=== PATIENT | male | born 1975 | race Caucasian/White ===

== ENCOUNTER 2023-11-16 11:42 | Observation (INO) | payer BC ==
--- NOTE | 2023-11-16 12:24 | ED ---
Chest Pain HPI - General Source: patient, RN notes reviewed Mode of arrival: ambulatory Limitations: no limitations <Bart Sparks - Last Filed: 11/16/23 12:23> <Tacho Bravo - Last Filed: 11/16/23 13:27> - General Chief Complaint: Chest Pain Stated Complaint: Chest Pains Time Seen by Provider: 11/16/23 11:59 - History of Present Illness Initial Comments: Quick [id number] male presents emergency department chief complaint chest pain. He states chest pain has been going on for quite some time has worsened.. Does have history of diabetes denies any prior cardiac disease denies hyperlipidemia hypertension. Patient states he was seen in urgent care and referred here for further workup. Patient denies any prior lung disease. (Bart Sparks) 48-year-old male with multiple risk factors presenting with progressive complaint of chest pain which is now exertional and relieved by rest. Central chest pain which she states over the past several days has been with walking. Patient has history of diabetes, hypertension, hyperlipidemia and is a current smoker. (Tacho Bravo) - Related Data Allergies Allergy/AdvReac Type Severity Reaction Status Date / Time No Known Allergies Allergy Verified 11/16/23 11:51 Review of Systems ROS Other: All systems not noted in ROS Statement are negative. <Bart Sparks - Last Filed: 11/16/23 12:23> ROS Other: All systems not noted in ROS Statement are negative. <Tacho Bravo - Last Filed: 11/16/23 13:27> ROS Statement: Those systems with pertinent positive or pertinent negative responses have been documented in the HPI. Past Medical History Past Medical History: Diabetes Mellitus History of Any Multi-Drug Resistant Organisms: None Reported Past Surgical History: No Surgical Hx Reported Past Psychological History: No Psychological Hx Reported Smoking Status: Vaper Past Alcohol Use History: Rare Past Drug Use History: None Reported <Bart Sparks - Last Filed: 11/16/23 12:23> General Exam Limitations: no limitations <Bart Sparks - Last Filed: 11/16/23 12:23> General appearance: alert, in no apparent distress Head exam: Present: atraumatic, normocephalic Eye exam: Present: normal appearance, PERRL ENT exam: Present: normal exam Neck exam: Present: normal inspection. Absent: tenderness, meningismus Respiratory exam: Present: normal lung sounds bilaterally. Absent: respiratory distress, wheezes Cardiovascular Exam: Present: regular rate, normal rhythm GI/Abdominal exam: Present: soft. Absent: distended, tenderness, guarding Extremities exam: Present: normal inspection, normal capillary refill Neurological exam: Present: alert, oriented X3 Psychiatric exam: Present: normal affect, normal mood Skin exam: Present: warm, dry, intact. Absent: cyanosis, diaphoretic <Tacho Bravo - Last Filed: 11/16/23 13:27> - General Exam Comments Initial Comments: Visual Physical Exam Vital signs reviewed General: Well-appearing, nontoxic, no acute distress. Head: Normocephalic, atraumatic Eyes: PERRLA, EOMI ENT: Airway patent Chest: Nonlabored breathing Skin: No visual rash, normal skin tone Neuro: Alert and oriented 3 Musculoskeletal: No gross abnormalities (Bart Sparks) Course Vital Signs 11/16/23 11:48 Temperature 97.9 F Pulse Rate 96 Respiratory 16 Rate Blood Pressure 129/89 O2 Sat by Pulse 100 Oximetry Chest Pain MDM <Bart Sparks - Last Filed: 11/16/23 12:23> <Tacho Bravo - Last Filed: 11/16/23 13:27> - MDM I completed the quick note portion of this chart signed Bart Sparks PA-C (Bart Sparks) Was pt. sent in by a medical professional or institution ([facility], [facility], urgent care, hospital, or long term...) When possible be specific @ -Sent in by urgent care Did you speak to anyone other than the patient for history (EMS, parent, family, police, friend...)? What history was obtained from this source @ -No Did you review nursing and triage notes (agree or disagree)? Why? @ -I reviewed and agree with nursing and triage notes Were old charts reviewed (outside hosp., previous admission, EMS record, old EKG, old radiological studies, urgent care reports/EKG's, long term records)? Report findings @ -No old charts were reviewed Differential Diagnosis (chest pain, altered mental status, abdominal pain women, abdominal pain men, vaginal bleeding, weakness, fever, dyspnea, syncope, headache, dizziness, GI bleed, back pain, seizure, CVA, palpatations, mental health, musculoskeletal)? @Differential Chest Pain: Stable Angina, Unstable Angina, STEMI, NSTEMI Aortic Dissection, Pneumothorax, Musculoskeletal, Esophageal Spasm GERD, Cholecystitis, Pancreatitis, Zoster, this is not meant to be an all-inclusive list. EKG interpreted by me (3pts min.). @ -[EKG: Sinus rhythm rate of 83, MA interval 161, QRS duration 88, QTc 393 X-rays interpreted by me (1pt min.). @ -Chest x-ray negative for acute cardiopulmonary disease CT interpreted by me (1pt min.). @ -[None done U/S interpreted by me (1pt. min.). @ -None done What testing was considered but not performed or refused? (CT, X-rays, U/S, labs)? Why? @ -None What meds were considered but not given or refused? Why? @ -None Did you discuss the management of the patient with other professionals (professionals i.e. , PA, [employer]F [employer]ATER, lab, RT, psych nurse, group social worker, post partum nurse, teacher, combat information center officer, case management specialist)? Give summary @ -EMH Was smoking cessation discussed for >3mins.? @ -No Was critical care preformed (if so, how long)? @ -No Were there social determinants of health that impacted care today? How? (Homelessness, low income, unemployed, alcoholism, drug addiction, transportation, low edu. Level, literacy, decrease access to med. care, [facility] [facility], rehab)? @ -No Was there de-escalation of care discussed even if they declined (Discuss DNR or withdrawal of care, Hospice)? DNR status @ -No What co-morbidities impacted this encounter? (DM, HTN, Smoking, COPD, CAD, Cancer, CVA, ARF, Chemo, Hep., AIDS, mental health diagnosis, sleep apnea, morbid obesity)? @ -[Hypertension diabetes, current tobacco use Was patient admitted / discharged? Hospital course, mention meds given and route, prescriptions, significant lab abnormalities, going to OR and other pertinent info. @ -48-year-old male sent in by urgent care for evaluation of intermittent worsening chest discomfort with exertion. Patient chest pain-free at the time my evaluation. He has significant risk factors and history is concerning for anginal chest pain. EKG sinus without ST segment elevation. Initial laboratory testing is unremarkable including negative troponin. Patient will be placed in observation for serial cardiac enzymes, telemetry, cardiology consultation. Undiagnosed new problem with uncertain prognosis? @ -No Drug Therapy requiring intensive monitoring for toxicity (Heparin, Nitro, Insulin, Cardizem)? @ -No Were any procedures done? @ -No Diagnosis/symptom? @Chest pain Acute, or Chronic, or Acute on Chronic? @ -[Acute Uncomplicated (without systemic symptoms) or Complicated (systemic symptoms)? @ -Default Side effects of treatment? @ -No Exacerbation, Progression, or Severe Exacerbation? @ -No Poses a threat to life or bodily function? How? (Chest pain, [place], [place], pneumonia, PE, COPD, DKA, ARF, appy, cholecystitis, CVA, Diverticulitis, Homicidal, Suici jf, threat to staff... and all critical care pts) @ -[Yes, ACS (Tacho Bravo) Disposition <Bart Sparks - Last Filed: 11/16/23 12:23> Is patient prescribed a controlled substance at d/c from ED?: No Time of Disposition: 13:27 <Tacho Bravo - Last Filed: 11/16/23 13:27> Clinical Impression: Chest pain Disposition: ADMITTED IP TO THIS HOSP Condition: Stable Referrals: Mack Hernández DO [Primary Care Provider] - 1-2 days
[2023-11-16 12:36] LABS: Basophils # (A) 0.1 k/uL (0-0.2); Basophils % (A) 1 %; Eosinophils # (A) 0.2 k/uL (0-0.7); Eosinophils % (A) 3 %; HCT 46.9 % (39.0-53.0); Lymphocytes # (A) 2.2 k/uL (1.0-4.8); Lymphocytes % (A) 23 %; MCH 30.2 pg (25.0-35.0); MCV 94.4 fL (80.0-100.0); Mean Platelet Volume 9.7; Monocytes # (A) 0.5 k/uL (0-1.0); Monocytes % (A) 6 %; Neutrophils # (A) 6.1 k/uL (1.3-7.7); Neutrophils % (A) 66 %; Platelet Count 214 k/uL (150-450); RBC 4.97 m/uL (4.30-5.90); RDW 12.4 % (11.5-15.5); WBC 9.3 k/uL (3.8-10.6)
[2023-11-16 12:38] LABS: INR 0.9 (<1.2); Partial Thromboplastin Time 24.2 sec (22.0-30.0); Prothrombin Time 10.3 sec (10.0-12.5)
--- NOTE | 2023-11-16 12:39 | XR ---
EXAMINATION TYPE: XR chest 2V DATE OF EXAM: 11/16/2023 COMPARISON: NONE HISTORY: Chest pain TECHNIQUE: Frontal and lateral views of the chest are obtained. FINDINGS: There is no focal air space opacity. No evidence for pneumothorax. No pleural effusion. The cardiac silhouette size is within normal limits. The osseous structures are grossly intact. IMPRESSION: 1. No acute cardiopulmonary process.
[2023-11-16 12:50] LABS: ALT 21 U/L (4-49); AST 26 U/L (17-59); African American GFR (CKD) >90 (>60 ml/min/1.73 sqM); Albumin 4.3 g/dL (3.5-5.0); Alkaline Phosphatase 77 U/L (38-126); Anion Gap 8 mmol/L; Blood Urea Nitrogen 13 mg/dL (9-20); Calcium 10.1 mg/dL (8.4-10.2); Carbon Dioxide 29 mmol/L (22-30); Chloride 105 mmol/L (98-107); Glucose 177 mg/dL (74-99); Magnesium 1.4 mg/dL (1.6-2.3); Non-African American GFR(CKD) >90 (>60 ml/min/1.73 sqM); Potassium 4.1 mmol/L (3.5-5.1); Sodium 142 mmol/L (137-145); Total Bilirubin 0.6 mg/dL (0.2-1.3); Total Protein 7.5 g/dL (6.3-8.2)
[2023-11-16] MEDS ORDERED: NALOXONE 0.4 MG/ML 1 ML VIAL IV PRN (13:21)
[2023-11-16] MEDS: ASPIRIN 325 MG TAB PO STA (14:35)
[2023-11-16] MEDS: MAGNESIUM SULFATE-D5W PMX 1 GM in DEXTROSE/WATER 1 100ML.BAG IVPB ONE (14:38)
[2023-11-16] MEDS ORDERED: Magnesium Replacement Protocol 1 EACH MISC MISCELLANE PRN (15:27)
[2023-11-16] MEDS ORDERED: Potassium Replacement Protocol 1 EACH MISC MISCELLANE PRN (15:27)
[2023-11-16] MEDS ORDERED: DEXTROSE 50% SYRINGE 50 ML IVP PRN ×2 (15:27)
[2023-11-16 17:11] LABS: Glucose,Whole Blood 139 mg/dL (70-110)
[2023-11-16] MEDS: INSULIN ASPART (NovoLOG) 100 UNIT/ML VIAL SQ SCH (17:12)
[2023-11-16 21:16] LABS: Glucose,Whole Blood 160 mg/dL (70-110)
[2023-11-16] MEDS: ATORVASTATIN 10 MG TAB PO SCH (21:31)
[2023-11-16 23:17] LABS: Glucose,Whole Blood 191 mg/dL (70-110)
[2023-11-16] MEDS: INSULIN DETEMIR (LEVEMIR) 100 UNIT/ML SYR SQ SCH (23:22)
--- NOTE | 2023-11-17 01:57 | HP ---
HISTORY AND PHYSICAL CHIEF COMPLAINT: Chest pain. HISTORY OF PRESENT ILLNESS: This 48-year-old gentleman was admitted with chest pain. The pain was worsened recently. The pain was aggravated on exertion. The patient was seen in Urgent [facility] Center, was referred for complete workup at this time. There are no history of any fever, rigors, or chills. Initial troponins are negative. PAST MEDICAL HISTORY: Reviewed. Include diabetes mellitus type 2. HOME MEDICATIONS: Reviewed. Include vitamin D3. Dose and rest of medications reviewed. ALLERGIES: None. FAMILY HISTORY: No history of heart disease or strokes in the family. SOCIAL HISTORY: Vaping REVIEW OF SYSTEMS: Fourteen-point review of systems negative except as mentioned earlier. PHYSICAL EXAM: VITAL SIGNS: Pulse is 66, blood pressure 121/80, respirations 16. HEENT: Conjunctivae normal. NECK: No JVD. CARDIOVASCULAR: S1, S2 muffled. RESPIRATIONS: Clear to auscultation. ABDOMEN: Soft, nontender. No mass. LEGS: No edema. NERVOUS SYSTEM: Nonfocal. SKIN: No ulcer, rash, bleeding. JOINTS: No active deforming arthropathy. LABORATORY DATA: Reviewed. ASSESSMENT: 1. Chest pain, possible unstable angina. 2. Diabetes mellitus, type 2. 3. History of atrial fibrillation. 4. Hypomagnesemia. RECOMMENDATIONS AND DISCUSSION: This is a 48-year-old gentleman who presented with multiple complex medical issues, we will monitor the patient closely. I would recommend to rule out myocardial infarction. Cardiology consultation. 2D echo with Doppler, possible stress test. Guarded prognosis because of multiple complex medical issues. Replace magnesium. Further recommendations to follow. Repeat lytes. Recommended close follow with primary physician after discharge. MMODL / IJN: [id number] /
[2023-11-17 06:17] LABS: Glucose,Whole Blood 96 mg/dL (70-110)
[2023-11-17] MEDS ORDERED: HEPARIN SODIUM,PORCINE 10,000 UNIT in SODIUM CHLORIDE 0.9% 1,000 ML IRRIGATION PRN (07:00)
[2023-11-17] MEDS ORDERED: HEPARIN SODIUM,PORCINE (1 ML) 2,500 UNIT in SODIUM CHLORIDE 0.9% 250 ML IRRIGATION PRN (07:00)
[2023-11-17] MEDS ORDERED: CHOLECALCIFEROL PO SCH (09:00)
[2023-11-17] MEDS ORDERED: ALPRAZolam 0.5 MG TAB PO PRN (10:31)
[2023-11-17] MEDS ORDERED: ALPRAZolam 0.25 MG TAB PO PRN (10:31)
[2023-11-17] MEDS ORDERED: NITROGLYCERIN SL TABS 0.4 MG TAB SUBLINGUAL PRN (10:31)
[2023-11-17] MEDS: ASPIRIN 325 MG TAB PO STA (10:46)
[2023-11-17] MEDS: SODIUM CHLORIDE 0.9% 1,000 ML IV SCH (10:46)
[2023-11-17] MEDS: ATORVASTATIN 80 MG TAB PO STA (10:46)
[2023-11-17 11:01] LABS: Basophils # (A) 0.03 X 10*3/uL (0.00-0.10); Basophils % (A) 0.3 %; Eosinophils # (A) 0.24 X 10*3/uL (0.04-0.35); Eosinophils % (A) 2.6 %; HCT 42.9 % (39.6-50.0); Lymphocytes # (A) 3.11 X 10*3/uL (0.90-5.00); Lymphocytes % (A) 34.1 %; MCH 29.7 pg (27.0-32.0); MCHC 32.6 g/dL (32.0-37.0); MCV 90.9 FL (80.0-97.0); Monocytes # (A) 0.79 X 10*3/uL (0.20-1.00); Monocytes % (A) 8.7 %; NRBC Per 100 WBC 0 X 10*3/uL (0.00-0.01); Neutrophils # (A) 4.93 X 10*3/uL (1.80-7.70); Neutrophils % (A) 54.2 %; Platelet Count 175 X 10*3/uL (140-440); RBC 4.72 X 10*6/uL (4.40-5.60); RDW 12.2 % (11.5-14.5); WBC 9.11 X 10*3/uL (4.50-10.00)
[2023-11-17 11:21] LABS: BUN/Creat Ratio 14.88 Ratio (12.00-20.00); Blood Urea Nitrogen 11.9 mg/dL (9.0-27.0); Calcium 9.8 mg/dL (8.7-10.3); Chloride 106 mmol/L (96-109); Glucose 99 mg/dL (70-110); Magnesium 1.6 mg/dL (1.5-2.4); Potassium 4.3 mmol/L (3.5-5.5); Sodium 144 mmol/L (135-145)
[2023-11-17 11:42] LABS: Glucose,Whole Blood 115 mg/dL (70-110)
--- NOTE | 2023-11-17 13:08 | P.CRDCN ---
History of Present Illness Consult date: 11/17/23 Consult reason: chest pain History of present illness: History of present illness: This is a 48-year-old male with past medical history of diabetes diagnosed 3-4 years ago, hyperlipidemia. We have been asked to evaluate the patient for chest pain. Patient states he has had about 5 episodes of chest pain over the past month. First episode occurred while he was in bed and other episodes have occurred while walking. Pain is in the midsternal area, burning type with radiation to back along with sensation of lump in the lower esophageal area. He also has sweats and clamminess with the pain. He denies shortness of breath, nausea, lightheadedness. He had one episode on Thursday and one on Thursday with activity. He also had an episode on Thursday when he was sleeping. Yesterday, he went to clinic and EKG was done and patient was sent to ER. He has a remote history of tobacco smoking and now vapes. He denies alcohol and drug use. No family history of CAD. Discussed diagnostic options with the patient and he is agreeable to move forward with cardiac catheterization which will be scheduled today. EKG sinus rhythm Chest x-ray: No acute process. CBC, INR, electrolytes and renal function within normal limits. Glucose 177. Magnesium 1.4. Troponin negative x 3. Liver function test within normal limits. Home cardiac medications: Crestor 5 mg at bedtime Review Of Systems: At the time of my exam: CONSTITUTIONAL: Denies fever or chills. HEENT: Denies blurred vision, vision changes, or eye pain. Denies hemoptysis CARDIOVASCULAR: Denies chest pain. Denies orthopnea. Denies PND. Denies palpitations RESPIRATORY: Denies shortness of breath. GASTROINTESTINAL: Denies abdominal pain. Denies nausea or vomiting. HEMATOLOGIC: Denies bleeding disorders. GENITOURINARY: Denies any blood in urine. SKIN: Denies pruitis. Denies rash. Physical examination: Gen: This is a 48-year-old male in no acute distress. VS: reviewed blood pressure 117/74, heart rate 65, pulse ox 99% on room air, afebrile. HEENT: Head is atraumatic, normocephalic. Pupils equal, round. Sclerae is anicteric. NECK: Supple. No JVD. LUNGS: Clear to auscultation. No wheezes or rhonchi. No intercostal retractions. HEART: Regular rate and rhythm. No murmur. ABDOMEN: Soft No tenderness. EXTREMITIES: No pedal edema. No calf tenderness. NEUROLOGICAL: Patient is awake, alert and oriented x3. Assessment: Chest pain, rule out coronary artery disease Diabetes mellitus type 2 insulin requiring Hyperlipidemia Plan: Resume patient's home cardiac medications Schedule patient for cardiac catheterization today with Dr. Olivares Obtain 2-D echocardiogram and Doppler study to assess cardiac structure and function Further recommendations to follow based upon clinical course Thank you kindly for this consultation. Nurse practitioner note has been reviewed, I agree with documented findings and plan of care. Patient was seen and examined. Past Medical History Past Medical History: Diabetes Mellitus History of Any Multi-Drug Resistant Organisms: None Reported Past Surgical History: No Surgical Hx Reported Past Anesthesia/Blood Transfusion Reactions: No Reported Reaction Past Psychological History: No Psychological Hx Reported Smoking Status: Vaper Past Alcohol Use History: Rare Past Drug Use History: None Reported Medications and Allergies Home Medications Medication Instructions Recorded Confirmed Type Cholecalciferol (Vitamin D3) 150 mcg PO DAILY 11/16/23 11/16/23 History [Vitamin D3 (50 Mcg = 2000 Iu)] Insulin Glargine,Hum.rec.anlog 17 units SQ HS 11/16/23 11/16/23 History [Toujeo Solostar] Rosuvastatin [Crestor] 5 mg PO HS 11/16/23 11/16/23 History metFORMIN HCL 500 mg PO BID 11/16/23 11/16/23 History Allergies Allergy/AdvReac Type Severity Reaction Status Date / Time No Known Allergies Allergy Verified 11/16/23 14:31 Physical Exam Vitals: Vital Signs Temp Pulse Pulse Resp BP BP Pulse Ox 11/17/23 07:00 98.3 F 65 17 117/74 99 11/17/23 02:00 18 11/17/23 00:37 98.4 F 63 16 117/76 99 11/16/23 23:00 98 F 88 18 108/78 96 11/16/23 19:41 68 14 110/78 98 11/16/23 14:39 66 16 121/84 97 11/16/23 13:13 96 16 139/93 100 11/16/23 11:48 97.9 F 96 16 129/89 100 Intake and Output 11/16/23 11/17/23 11/17/23 22:59 06:59 14:59 Other: # Voids 1 Weight 92.986 kg Results 11/17/23 06:35 11/17/23 06:35 Cardiac Enzymes 11/16/23 11/16/23 11/16/23 Range/Units 12:09 12:09 14:55 AST 26 (17-59) U/L Troponin I <0.012 <0.012 (0.000-0.034) ng/mL 11/16/23 Range/Units 17:29 AST (17-59) U/L Troponin I <0.012 (0.000-0.034) ng/mL Coagulation 11/16/23 Range/Units 12:09 PT 10.3 (10.0-12.5) sec APTT 24.2 (22.0-30.0) sec CBC 11/16/23 Range/Units 12:09 WBC 9.3 (3.8-10.6) k/uL RBC 4.97 (4.30-5.90) m/uL Hgb 15.0 (13.0-17.5) gm/dL Hct 46.9 (39.0-53.0) % Plt Count 214 (150-450) k/uL Comprehensive Metabolic Panel 11/16/23 Range/Units 12:09 Sodium 142 (137-145) mmol/L Potassium 4.1 (3.5-5.1) mmol/L Chloride 105 (98-107) mmol/L Carbon Dioxide 29 (22-30) mmol/L BUN 13 (9-20) mg/dL Creatinine 0.75 (0.66-1.25) mg/dL Glucose 177 H (74-99) mg/dL Calcium 10.1 (8.4-10.2) mg/dL AST 26 (17-59) U/L ALT 21 (4-49) U/L Alkaline Phosphatase 77 (38-126) U/L Total Protein 7.5 (6.3-8.2) g/dL Albumin 4.3 (3.5-5.0) g/dL Current Medications Generic Name Dose Route Start Last Admin Trade Name Freq PRN Reason Stop Dose Admin Acetaminophen 650 mg 11/16/23 13:21 Acetaminophen Tab 325 Mg Tab PO Q6HR PRN Mild Pain or Fever > 100.5 Atorvastatin Calcium 10 mg 11/16/23 21:00 11/16/23 21:31 Atorvastatin 10 Mg Tab PO 10 mg HS SOILA Administration Dextrose/Water 25 ml 11/16/23 15:27 Dextrose 50% Syringe 50 Ml IVP PER PROTOCOL PRN Hypoglycemia Protocol Dextrose/Water 50 ml 11/16/23 15:27 Dextrose 50% Syringe 50 Ml IVP PER PROTOCOL PRN Hypoglycemia Protocol Insulin Aspart 0 unit 11/16/23 17:30 11/17/23 06:34 Insulin Aspart (Novolog) 100 Unit/Ml Vial SQ Not Given ACHS [facility] Protocol Insulin Detemir 17 unit 11/16/23 21:00 11/16/23 23:22 Insulin Detemir (Levemir) 100 Unit/Ml Syr SQ 15 unit HS SOILA Administration Miscellaneous Information 1 each 11/16/23 15:27 Potassium Replacement Protocol 1 Each Misc MISCELLANE DAILY PRN Per Protocol Protocol Miscellaneous Information 1 each 11/16/23 15:27 Magnesium Replacement Protocol 1 Each Misc MISCELLANE DAILY PRN Per Protocol Protocol Naloxone HCl 0.2 mg 11/16/23 13:21 Naloxone 0.4 Mg/Ml 1 Ml Vial IV Q2M PRN Opioid Reversal Intake and Output 11/16/23 11/17/23 11/17/23 22:59 06:59 14:59 Other: # Voids 1 Weight 92.986 kg 11/16/23 12:09 11/16/23 12:09
[2023-11-17] MEDS ORDERED: LIDOCAINE 1% INJ 10MG/ML (20 ML MDV) ONE (13:59)
[2023-11-17] MEDS ORDERED: VERAPAMIL 2.5 MG/ML 2 ML AMP ONE (13:59)
[2023-11-17] MEDS ORDERED: fentaNYL (PF) 50 MCG/ML 2 ML AMP ONE (14:00)
[2023-11-17] MEDS ORDERED: HEPARIN SODIUM 1,000 UN/ML (10ML VL) ONE ×2 (14:00→15:09)
[2023-11-17] MEDS: SODIUM CHLORIDE 0.9% 1,000 ML IV ONE (14:20)
[2023-11-17] MEDS: LIDOCAINE 1% INJ 10MG/ML (20 ML MDV) SQ ONE (14:21)
[2023-11-17] MEDS: MIDAZOLAM 2 MG/2 ML VIAL IVP ONE (14:21)
[2023-11-17] MEDS: fentaNYL (PF) 50 MCG/ML 2 ML AMP IVP ONE (14:21)
[2023-11-17] MEDS: VERAPAMIL SYRINGE (5 MG/10 ML) INTRAARTER ONE (14:23)
[2023-11-17] MEDS: HEPARIN SODIUM 1,000 UN/ML (10ML VL) IVP ONE (14:23)
[2023-11-17] MEDS ORDERED: PRASUGREL 10 MG TAB ONE (14:39)
[2023-11-17] MEDS: PRASUGREL 10 MG TAB PO ONE (14:40)
[2023-11-17] MEDS: NITROGLYCERIN 1000MCG/10ML SYRINGE INTRACORON ONE (14:47)
[2023-11-17] MEDS: IOPAMIDOL-370 100ML BTL INJ ONE ×2 (14:49→15:08)
[2023-11-17] MEDS ORDERED: ZOLPIDEM 5 MG TAB PO PRN (15:17)
[2023-11-17] MEDS ORDERED: RX INFO: IV CONTRAST WAS GIVEN 1 EACH MISC MISCELLANE PRN (15:17)
[2023-11-17] MEDS ORDERED: MAG HYDROX/AL HYDROX/SIMETH 30 ML CUP PO PRN (15:17)
[2023-11-17] MEDS ORDERED: ATROPINE SULFATE 0.1 MG/ML 10ML SYRINGE IV PRN (15:17)
--- NOTE | 2023-11-17 15:26 | P.PRCINT ---
Percutaneous Coronary Int. - Percutaneous Coronary Intervention Percutaneous Coronary Intervention: PROCEDURES PERFORMED: Left heart catheterization, bilateral coronary angiography, ultrasound guided arterial access, PCI proximal LAD with a 4.0 x 33mm Xience JAMES, post dilated with a 4.5 NC balloon, IVUS LAD INDICATION: unstable angina, NYHA class 4 symptoms CONSENT:I have discussed the risks, benefits and alternative therapies for the above-mentioned procedure and for both sedation/analgesia as well as necessary blood product administration, if indicated, as they pertain to this patient. The patient has indicated understanding and acceptance of the risks and procedures discussed. PROCEDURE: After the risks, benefits and alternatives of the above mentioned procedure explained in detail with the patient, informed consent was obtained. Patient was taken to the catheterization lab and prepped and draped in usual fashion. Ultrasound guidance was used to assess for arterial access. 1% lidocaine was used to anesthetize the right radial artery. A 6-Ghanaian sheath was placed in the right radial artery using modified Seldinger technique and ultrasound guidance. Left coronary angiography was performed with a 5-Ghanaian JL 3.5 catheter and right coronary angiography was performed with a 5-Ghanaian FR5 catheter in various views. A 5-Ghanaian FR5 catheter was inserted into the left ventricle and pressure measurements were obtained. the decision was made to perform PCI of the LAD. A 6-Ghanaian CLS 3.5 guide was easily engaged left main. A 0.014 BMW wire was advanced to the distal circumflex as well as into the distal LAD. Predilation was performed with a 2.5 x 12 mm balloon. Intravascular ultrasound was performed which showed diffuse disease of the proximal segment with what appeared to be soft plaque and no significant calcifications. The reference vessel was 4.5 mm proximally and 4.0 mm more distally. A 4.0 x 33 mm Xience JAMES was placed from the origin of the LAD to the mid LAD. intravascular ultrasound showed mild decreased expansion of the proximal portion of the stent. The proximal portion of the stent was postdilated with a 4.5 noncompliant balloon. repeat intravascular ultrasound then showed excellent stent apposition. Final angiograms were performed. Pre- intervention there is 95% stenosis with WALDO 3 flow and postintervention there was 0% stenosis with WALDO 3 flow. The right radial sheath was removed and a TR band was placed with hemostasis achieved. The patient tolerated the procedure well. Patient was transported back to the post catheterization holding area in stable condition. Conscious Sedation: Patient was monitored under the direct supervision of myself for conscious sedation using Versed and fentanyl for a total duration of 61 minutes HEMODYNAMICS: Aorta: 141/72 LV: 141/8, LVEDP 17 SELECTIVE CORONARY ARTERIOGRAPHY: LEFT MAIN: The left main is a large caliber vessel which bifurcates into the LAD and circumflex. There is no significant stenosis. LEFT ANTERIOR DESCENDING CORONARY ARTERY: LAD is a large caliber vessel which wraps around to the apex. There is a proximal 95% followed by a 80% LAD stenosis. Otherwise there are mild luminal irregularities. LEFT CIRCUMFLEX CORONARY ARTERY: Left circumflex is a moderate caliber vessel without significant stenosis. RIGHT CORONARY ARTERY: The right coronary artery is a large caliber vessel which gives off a PDA and PLV branch and is the dominant vessel. There is no significant stenosis. FINAL IMPRESSION: 1. CAD as described above including 95% proximal LAD stenosis. 2. S/p PCI proximal LAD with a 4.0 x 33mm Xience JAMES, post dilated with a 4.5 NC balloon 3. Mildly elevated left sided filling pressures PLAN: 1. Aggressive risk factor modification per most recent ACC/AHA guidelines. 2. Continue dual antiplatelets with aspirin and Effient for 12 months 3. Discussed tobacco and vaping cessation and patient given referral to [place] [facility].
[2023-11-17] MEDS: ACETAMINOPHEN TAB 325 MG TAB PO PRN (15:55)
--- NOTE | 2023-11-17 16:06 | CA ---
Transthoracic Echo Report Name: Kal Coombs Age: 48 Gender: M : 1975 Exam Date: 11/17/2023 11:35 Exam Location: [facility] Ht (in): 70 Wt (lb): 205 Ordering Physician: Madie Manley Attending/Referring Phys: [id number], Vineet Radiologic Technologist Mammogram Rina Crum RDCS Procedure CPT: Indications: LVF Cardiac Hx: Technical Quality: Fair Contrast 1: Total Dose (mL): Contrast 2: Total Dose (mL): MEASUREMENTS (Male / Female) Normal Values 2D ECHO LV Diastolic Diameter PLAX 2.9 cm 4.2 - 5.9 / 3.9 - 5.3 cm LV Systolic Diameter PLAX 2.0 cm IVS Diastolic Thickness 1.1 cm 0.6 - 1.0 / 0.6 - 0.9 cm LVPW Diastolic Thickness 1.2 cm 0.6 - 1.0 / 0.6 - 0.9 cm LV Relative Wall Thickness 0.8 RV Internal Dim ED PLAX 4.2 cm LA Volume 36.6 cm??? 18 - 58 / 22 - 52 cm??? LA Volume Index 16.9 cm???/m??? 16 - 28 cm???/m??? M-MODE Aortic Root Diameter MM 3.5 cm LA Systolic Diameter MM 2.9 cm LA Ao Ratio MM 0.8 AV Cusp Separation MM 2.0 cm DOPPLER AV Peak Velocity 106.0 cm/s AV Peak Gradient 4.5 mmHg AV Mean Velocity 75.4 cm/s AV Mean Gradient 2.5 mmHg AV Velocity Time Integral 20.1 cm LVOT Peak Velocity 79.9 cm/s LVOT Peak Gradient 2.6 mmHg LVOT Velocity Time Integral 15.5 cm MV Area PHT 4.0 cm??? Mitral E Point Velocity 78.3 cm/s Mitral A Point Velocity 75.8 cm/s Mitral E to A Ratio 1.0 MV Deceleration Time 188.1 ms MV E' Velocity 8.2 cm/s Mitral E to MV E' Ratio 9.6 TR Peak Velocity 184.3 cm/s TR Peak Gradient 13.6 mmHg Right Ventricular Systolic Press 17.8 mmHg FINDINGS Left Ventricle Normal Left ventricular size, wall thickness, systolic function with no obvious regional wall motion abnormalities. Normal Left ventricular diastolic filling pattern. Left ventricular ejection fraction is estimated at 55-60 %. Right Ventricle Mild right ventricular dilatation. Right ventricular systolic pressure within normal limits. Right Atrium Normal right atrial size. Left Atrium Normal left atrial size. Mitral Valve Structurally normal mitral valve. No mitral stenosis. Trace mitral regurgitation. Aortic Valve No aortic valve stenosis or regurgitation. Tricuspid Valve Structurally normal tricuspid valve. Mild tricuspid regurgitation. Pulmonic Valve Structurally normal pulmonic valve. Pericardium No pericardial effusion. Aorta Normal size aortic root and proximal ascending aorta. CONCLUSIONS Left ventricular ejection fraction 55-60% Normal left ventricular wall thickness RVSP 17 Trace mitral regurgitation Mild tricuspid regurgitation No pericardial effusion Previewed by: Dr. Kris Olivares DO (Electronically Signed) Final Date: 17 November 2023 16:05
[2023-11-17 17:11] VITALS: RESP 16
[2023-11-17 17:26] LABS: Glucose,Whole Blood 86 mg/dL (70-110)
[2023-11-17 19:57] LABS: Glucose,Whole Blood 205 mg/dL (70-110)
[2023-11-17] MEDS: METOPROLOL TARTRATE 12.5 MG TAB PO SCH (20:24)
--- NOTE | 2023-11-17 22:56 | P.PN ---
Subjective Progress Note Date: 11/17/23 Patient is evaluated today pending cardiac catheterization. Currently the chest pain has resolved. Echocardiogram showing EF 55-60% with trace MR and mild TR. Hemoglobin A1C 11.2. Review of Systems Constitutional: Denied any fatigue denied any fever. Cardio vascular: denied any chest pain, palpitations Gastrointestinal: denied any nausea, vomiting, diarrhea Pulmonary: Denied any shortness of breath cough Neurologic denied any new focal deficits All inpatient medications were reviewed and appropriate changes in these medications as dictated in the interval history and assessment and plan. PHYSICAL EXAMINATION: GENERAL: The patient is alert and oriented x3, not in any acute distress. Well developed, well nourished. HEENT: Pupils are round and equally reacting to light. EOMI. No scleral icterus. No conjunctival pallor. Normocephalic, atraumatic. No pharyngeal erythema. No thyromegaly. CARDIOVASCULAR: S1 and S2 present. No murmurs, rubs, or gallops. PULMONARY: Chest is clear to auscultation, no wheezing or crackles. ABDOMEN: Soft, nontender, nondistended, normoactive bowel sounds. No palpable organomegaly. MUSCULOSKELETAL: No joint swelling or deformity. EXTREMITIES: No cyanosis, clubbing, or pedal edema. NEUROLOGICAL: Gross neurological examination did not reveal any focal deficits. SKIN: No rashes. Assessment and Plan Chest pain, rule out ACS pending cardiac catheterization Hx of diabetes mellitus type 2 uncontrolled with hemoglobin A1C of 11.2. Vaping history Hyperlipidemia GI prophylaxis The impression and plan of care has been dictated by Odilia Meza Nurse Practitioner as directed. Dr. Violetta MD I have performed a history and physical examination and medical decision making of this patient, discussed the same with the dictator, and agree with the dic tators assessment and plan as written, documented as a scribe. Based on total visit time, I have performed more than 50% of this visit. Objective - Vital Signs Vital signs: Vital Signs Temp 98.3 F 11/17/23 19:17 Pulse 77 11/17/23 19:17 Resp 16 11/17/23 19:17 BP 108/68 11/17/23 19:17 Pulse Ox 96 11/17/23 19:17 FiO2 Intake & Output 11/17/23 11/17/23 11/18/23 06:59 18:59 06:59 Intake Total 340 Balance 340 Weight 92.986 kg Intake: IV 100 Oral 240 Other: # Voids 1 1 1 - Labs CBC & Chem 7: 11/17/23 06:35 11/17/23 06:35 Labs: Abnormal Lab Results - Last 24 Hours (Table) 11/16/23 11/17/23 11/17/23 Range/Units 23:15 06:35 06:35 Anion Gap 13.00 H (4.00-12.00) mmol/L POC Glucose (mg/dL) 191 H (70-110) mg/dL Hemoglobin A1c 11.2 H (<=6.0) % 11/17/23 11/17/23 Range/Units 11:35 19:56 Anion Gap (4.00-12.00) mmol/L POC Glucose (mg/dL) 115 H 205 H (70-110) mg/dL Hemoglobin A1c (<=6.0) % Assessment and Plan Time with Patient: Less than 30
[2023-11-18 06:08] LABS: Glucose,Whole Blood 102 mg/dL (70-110)
[2023-11-18 06:44] LABS: Basophils # (A) 0.1 k/uL (0-0.2); Basophils % (A) 1 %; Eosinophils # (A) 0.2 k/uL (0-0.7); Eosinophils % (A) 3 %; HCT 44.5 % (39.0-53.0); HGB 13.8 gm/dL (13.0-17.5); Lymphocytes % (A) 32 %; MCH 29.9 pg (25.0-35.0); MCHC 31.1 g/dL (31.0-37.0); MCV 96.3 fL (80.0-100.0); Mean Platelet Volume 8.7; Monocytes # (A) 0.6 k/uL (0-1.0); Monocytes % (A) 6 %; Neutrophils # (A) 5.2 k/uL (1.3-7.7); Neutrophils % (A) 56 %; Platelet Count 179 k/uL (150-450); RBC 4.62 m/uL (4.30-5.90); RDW 12.1 % (11.5-15.5); WBC 9.2 k/uL (3.8-10.6)
[2023-11-18 06:54] LABS: African American GFR (CKD) >90 (>60 ml/min/1.73 sqM); Anion Gap 8 mmol/L; Blood Urea Nitrogen 13 mg/dL (9-20); Calcium 8.6 mg/dL (8.4-10.2); Carbon Dioxide 22 mmol/L (22-30); Chloride 110 mmol/L (98-107); Glucose 111 mg/dL (74-99); Non-African American GFR(CKD) >90 (>60 ml/min/1.73 sqM); Sodium 140 mmol/L (137-145)
[2023-11-18 07:54] VITALS: BP 118/78; PULSE 63; TEMP 97.7
[2023-11-18] MEDS: PRASUGREL 10 MG TAB PO SCH (08:56)
[2023-11-18] MEDS: ASPIRIN 81 MG PO SCH (08:56)
[2023-11-18] MEDS: LOSARTAN 25 MG TAB PO SCH (08:57)
--- NOTE | 2023-11-18 09:31 | P.PN ---
Subjective Progress Note Date: 11/18/23 Consult reason: chest pain History of present illness: History of present illness: This is a 48-year-old male with past medical history of diabetes diagnosed 3-4 years ago, hyperlipidemia. We have been asked to evaluate the patient for chest pain. Patient states he has had about 5 episodes of chest pain over the past month. First episode occurred while he was in bed and other episodes have occurred while walking. Pain is in the midsternal area, burning type with radiation to back along with sensation of lump in the lower esophageal area. He also has sweats and clamminess with the pain. He denies shortness of breath, nausea, lightheadedness. He had one episode on Thursday and one on Thursday with activity. He also had an episode on Thursday when he was sleeping. Yesterday, he went to clinic and EKG was done and patient was sent to ER. He has a remote history of tobacco smoking and now vapes. He denies alcohol and drug use. No family history of CAD. Discussed diagnostic options with the patient and he is agreeable to move forward with cardiac catheterization which will be scheduled today. EKG sinus rhythm Chest x-ray: No acute process. CBC, INR, electrolytes and renal function within normal limits. Glucose 177. Magnesium 1.4. Troponin negative x 3. Liver function test within normal limits. Home cardiac medications: Crestor 5 mg at bedtime 4/ Yesterday, patient underwent cardiac catheterization with Dr. Olivares which revealed coronary artery disease 95% in the proximal LAD status post JAMES. Patient has been started on Effient, aspirin continued on statin. Patient denies having any chest pain, no chest pressure, no lightheadedness or dizziness. No shortness of breath. Blood pressure 118/78, heart rate 63, pulse ox 97% on room air. Repeat blood work reveals BUN 13 creatinine 0.7. Echocardiogram reveals EF of 55 to 60%, normal left ventricular wall thickness. RVSP 17. Trace mitral regurgitation. Mild tricuspid regurgitation. No pericardial effusion. Physical examination: Gen: This is a 48-year-old male in no acute distress. VS: reviewed blood pressure 117/74, heart rate 65, pulse ox 99% on room air, afebrile. HEENT: Head is atraumatic, normocephalic. Pupils equal, round. Sclerae is anicteric. NECK: Supple. No JVD. LUNGS: Clear to auscultation. No wheezes or rhonchi. No intercostal retractions. HEART: Regular rate and rhythm. No murmur. ABDOMEN: Soft No tenderness. EXTREMITIES: No pedal edema. No calf tenderness. NEUROLOGICAL: Patient is awake, alert and oriented x3. Assessment: Chest pain, rule out coronary artery disease Diabetes mellitus type 2 insulin requiring Hyperlipidemia Plan: Continue current cardiac medications New prescriptions have been sent to his pharmacy Discussed with the patient need to increase statin dosing and he is agreeable to increase dose of Crestor Patient is cleared for discharge from cardiology May follow-up in the office with Dr. Olivares in 1 week Nurse practitioner note has been reviewed, I agree with documented findings and plan of care. Patient was seen and examined. Objective - Vital Signs Vital signs: Vital Signs Temp 97.7 F 11/18/23 07:00 Pulse 63 11/18/23 07:00 Resp 16 11/18/23 07:00 BP 118/78 11/18/23 07:00 Pulse Ox 97 11/18/23 07:00 FiO2 Intake & Output 11/17/23 11/18/23 11/18/23 18:59 06:59 18:59 Intake Total 340 Balance 340 Intake: IV 100 Oral 240 Other: # Voids 1 1 - Labs CBC & Chem 7: 11/18/23 05:51 11/18/23 05:51 Labs: Abnormal Lab Results - Last 24 Hours (Table) 11/17/23 11/17/23 11/17/23 Range/Units 06:35 06:35 11:35 Chloride (98-107) mmol/L Anion Gap 13.00 H (4.00-12.00) mmol/L Glucose (74-99) mg/dL POC Glucose (mg/dL) 115 H (70-110) mg/dL Hemoglobin A1c 11.2 H (<=6.0) % 11/17/23 11/18/23 Range/Units 19:56 05:51 Chloride 110 H (98-107) mmol/L Anion Gap (4.00-12.00) mmol/L Glucose 111 H (74-99) mg/dL POC Glucose (mg/dL) 205 H (70-110) mg/dL Hemoglobin A1c (<=6.0) %
[2023-11-18 11:28] LABS: Chol/HDL Ratio 2.78 Ratio; LDL Cholesterol,Calculated 36.6 mg/dL (0.0-131.0)
[2023-11-18 11:55] VITALS: BMI 29.4
[2023-11-18] MEDS ORDERED: ATORVASTATIN 80 MG TAB PO SCH (21:00)
--- NOTE | 2023-11-21 21:19 | P.DS ---
Providers Date of admission: 11/16/23 13:22 Attending physician: Amelia Benitez Consults: 11/16/23 13:21 Consult Physician Routine Consulting Provider: Bhargavi Piper Consult Reason/Comments: CP Do you want consulting provider notified?: Yes 11/17/23 15:17 Consult Physician Routine Consulting Provider: Cardiology Gus Consult Reason/Comments: Post Interventional patient Do you want consulting provider notified?: Already Contacted Primary care physician: [facility] Course: Final Diagnosis Chest pain due to non -STEMI. Status post PCI to the LAD. Hx of diabetes mellitus type 2 uncontrolled with hemoglobin A1C of 11.2. Vaping history Hyperlipidemia Discharge Disposition Patient is stable for discharge home. Patient recently resumed on [employer] outpatient recommending to monitor blood glucose and dietary modifications. He was given information for diabetic education outpatient. Hemoglobin A1C 11.2. Continue dual antiplatelets with aspirin and Effient for 12 months. Statin has been increased. Patient encouraged to quit smoking/vaping. Hospital Course This is a 48-year-old male with past medical history of diabetes diagnosed 3-4 years ago, hyperlipidemia. Patient states he has had about 5 episodes of chest pain over the past month. First episode occurred while he was in bed and other episodes have occurred while walking. Pain is in the midsternal area, burning type with radiation to back along with sensation of lump in the lower esophageal area. He also has sweats and clamminess with the pain. He denies shortness of breath, nausea, lightheadedness. He had one episode on Thursday and one on Thursday with activity. He also had an episode on Thursday when he was sleeping. He went to the clinic, EKG was done and patient was then recommended to come to the hospital for further evaluation. He has a remote history of tobacco smoking and now vapes. He denies alcohol and drug use. No family history of CAD. He does report being taken off medication for his diabetes and was recently starting back on insulin by his PCP. His A1C this admission found to be 11.2. He was recommended to undergo cardiac catheterization which reveals significant coronary artery disease with 95% stenosis of the proximal LAD. patient underwent PCI to the LAD and started on dual antiplatelet therapy with aspirin and effient. He has been monitored overnight post cardiac cath and reports no further episodes of chest discomfort or diaphoresis. Echocardiogram comes back revealing an EF of 55-60%, trace MR, mild TR, no pericardial effusion. He is denying chest pain, denying shortness of breath. He has been up ambulating. Lipid panel showing triglycerides 118, cholesterol 94, LDL 36, HDL 33.8. Hemodynamically he is stable. Please see medication reconciliation for a list of current medications. Thank you for allowing us to participate in the care of this patient. The impression and plan of care has been dictated by Odilia Meza, Nurse Practitioner as directed. Dr. Violetta MD I have performed a history and physical examination and medical decision making of this patient, discussed the same with the dictator, and agree with the dictators assessment and plan as written, documented as a scribe. Based on total visit time, I have performed more than 50% of this visit. Patient Condition at Discharge: Stable Plan - Discharge Summary Discharge Rx Participant: No New Discharge Prescriptions: New Losartan [Cozaar] 25 mg PO DAILY #90 tab Metoprolol Tartrate [Lopressor] 12.5 mg PO BID #180 tab Nitroglycerin Sl Tabs [Nitrostat] 0.4 mg SUBLINGUAL Q5M PRN #25 tab PRN Reason: Chest Pain Rosuvastatin [Crestor] 20 mg PO HS #90 tablet Aspirin 81 mg PO DAILY tab Prasugrel [Effient] 10 mg PO DAILY #90 tab Mag Hydrox/Al Hydrox/Simeth [Maalox] 30 ml PO Q4HR PRN ml PRN Reason: Heartburn Continue metFORMIN HCL 500 mg PO BID Insulin Glargine,Hum.rec.anlog [Toujeo Solostar] 17 units SQ HS Cholecalciferol (Vitamin D3) [Vitamin D3 (50 Mcg = 2000 Iu)] 150 mcg PO DAILY Discontinued Rosuvastatin [Crestor] 5 mg PO HS Discharge Medication List Cholecalciferol (Vitamin D3) [Vitamin D3 (50 Mcg = 2000 Iu)] 150 mcg PO DAILY 11/16/23 [History] Insulin Glargine,Hum.rec.anlog [Toujeo Solostar] 17 units SQ HS 11/16/23 [History] metFORMIN HCL 500 mg PO BID 11/16/23 [History] Aspirin 81 mg PO DAILY tab 11/18/23 [Rx] Losartan [Cozaar] 25 mg PO DAILY #90 tab 11/18/23 [Rx] Mag Hydrox/Al Hydrox/Simeth [Maalox] 30 ml PO Q4HR PRN ml 11/18/23 [Rx] Metoprolol Tartrate [Lopressor] 12.5 mg PO BID #180 tab 11/18/23 [Rx] Nitroglycerin Sl Tabs [Nitrostat] 0.4 mg SUBLINGUAL Q5M PRN #25 tab 11/18/23 [Rx] Prasugrel [Effient] 10 mg PO DAILY #90 tab 11/18/23 [Rx] Rosuvastatin [Crestor] 20 mg PO HS #90 tablet 11/18/23 [Rx] Follow up Appointment(s)/Referral(s): Kris Olivares DO [STAFF PHYSICIAN] - 1 Week (Office will call with appointment time and date.) Mack Hernández DO [Primary Care Provider] - 1-2 days Patient Instructions/Handouts: *Surgery [facility] - After Heart Catheterization - Track Laying Supervisor Instructions, After Radial Heart Catheterization (GEN) Activity/Diet/Wound Care/Special Instructions: Continue on your long acting insulin and recommend close monitoring of blood glucose. Hemoglobin A1C found to be 11.2. Hold metformin today and can resume on 11/19/23. Discharge Disposition: HOME SELF-CARE
== END 2023-11-18 11:50 | disposition home or self-care (01) ==
LOC: EC 11:42 → 6NMEDSUR 13:22
PROVIDERS: ADMIT Hospitalist; ATTEND Hospitalist
DX: I21.3 ST elevation (STEMI) myocardial infarction of unspecified site (principal); I25.10 Atherosclerotic heart disease of native coronary artery without angina pectoris; E11.65 Type 2 diabetes mellitus with hyperglycemia; I08.1 Rheumatic disorders of both mitral and tricuspid valves; E78.5 Hyperlipidemia, unspecified; I10 Essential (primary) hypertension; I48.91 Unspecified atrial fibrillation; E83.42 Hypomagnesemia; F17.290 Nicotine dependence, other tobacco product, uncomplicated; Z79.84 Long term (current) use of oral hypoglycemic drugs; Z79.4 Long term (current) use of insulin; Z79.899 Other long term (current) drug therapy
CPT/HCPCS: 96365; 96366; 99285; 36415; 93005; 93306; 93458; 76937; 80061; 80053; 80048 ×2; 83735 ×2; 84484; 85025 ×3; 85610; 85730; 83036; 71046; G0378 ×3; C9600; C1769 ×2; C1887; C1894; C1725 ×2; C1753; C1874; J2250; J2001; J3010; J1644; J3475; Q9967; J2305